=== PATIENT | female | born 1970 | race Caucasian/White ===

== ENCOUNTER 2017-11-19 09:18 | Emergency (ER) | payer OTHER ==
[~2017-11-19] VITALS: Ht 172.7 cm; Wt 77.1 kg
[~2017-11-19 09:18] MED LIST: Birth Control; CLARITIN10 MG; MECLIZINE HCL12.5 MG; NEURONTIN 300300 M1; ULTRAM 50MG TAB50 MG PO
[2017-11-19] MEDS ORDERED: LIORESAL 10 MG10 MG PO (09:21)
[2017-11-19] MEDS ORDERED: CLARITIN10 MG PO (09:22)
[2017-11-19] MEDS ORDERED: UNICOMPLEX M TA1 TA1 PO (09:22)
[2017-11-19 10:02] LABS: ABSOLUTE BASOPHILS 0.1 thou/uL (0.0-0.2); ABSOLUTE LYMPHOCYTES 1.7 thou/uL (0.8-5.3); ABSOLUTE MONOCYTES 0.3 thou/uL (0.0-1.2); ABSOLUTE NEUTROPHILS 4.8 thou/uL (1.6-8.1); BASOPHILS 0.9 %; EOSINOPHILS 0.3 %; HEMATOCRIT 37.1 % (37.0-47.0); HEMOGLOBIN 12.5 gm/dL (12.0-15.0); MCH 28.4 pg (26.0-34.0); MCHC 33.7 g/dL (28.0-37.0); MCV 84.4 fL (80.0-100.0); MPV 6.8 fl. (7.2-11.1); NUCLEATED RBCS 0 /100WBC; PLATELET COUNT* 410 thou/uL (150-400); POLYS 69.8 %; RDW-CV 13.5 % (10.5-14.5); WBC 6.9 thou/uL (4.0-11.0)
[2017-11-19 10:10] LABS: ANION GAP 8 mmol/L (7-16); BUN 10 mg/dL (7-18); CALCIUM 8.9 mg/dL (8.5-10.1); CHLORIDE 105 mmol/L (98-107); CO2 28 mmol/L (21-32); CREATININE 0.6 mg/dL (0.6-1.3); GLUCOSE 95 mg/dL (70-99); POTASSIUM 3.9 mmol/L (3.5-5.1); SODIUM 141 mmol/L (136-145)
[2017-11-19 10:21] LABS: ALBUMIN 3.6 g/dL (3.4-5.0); ALKALINE PHOSPHATASE 136 U/L (46-116); LIPASE 81 U/L (73-393); NT-PRO BRAIN NAT PEPTIDE 33 pg/mL (<300); SGOT 13 U/L (15-37); SGPT 13 U/L (30-65); TOTAL BILIRUBIN 0.2 mg/dL (<0.1-1.0); TOTAL PROTEIN 7.3 g/dL (6.4-8.2); TROPONIN-I LEVEL <0.06 ng/mL (<0.06)
[2017-11-19 10:23] LABS: PROTIME 10.2 Seconds (9.20-11.50)
[2017-11-19] MEDS ORDERED: ADULT LOW DOSE81 MG PO (13:03)
[2017-11-19 13:41] VITALS: BP 111/79
--- NOTE | 2017-11-20 11:40 | EKG ---
[place] [address] ELECTROCARDIOGRAM REPORT Name: HILTON COCHRANTHIAll Dacosta [facility] [id number] Admission: 11/19/17 Attend Phys: Discharge: 11/19/17 Date of : 70 Report #: [id number] THIS REPORT FOR: //name// [facility] ED Test Date: 2017-11-19 Test Time: 09:23:36 Pat Name: FRED COCHRAN Department: Room: Gender: F Personal Banking Representative: : 1970 Requested By: Rob Aden Order Number: [id number] MD: Reza Dee Measurements Intervals [place] Rate: 85 P: 69 [place]: 164 QRS: 22 QRSD: 88 T: 54 QT: 355 QTc: 422 Interpretive Statements Sinus rhythm Baseline wander in lead(s) II,III,aVR,aVL,aVF No previous ECG available for comparison Electronically Signed On 11-20-2017 11:39:52 [employer]ER [employer]UCATION TEACHER by Reza Dee [email or web address] <ELECTRONICALLY SIGNED> By: Reza Dee MD, [facility] 11/20/17 1139 D: [id number] 2 Reza Dee MD, FACC /EPI
== END 2017-11-19 13:41 | disposition home or self-care (01) ==
LOC: M.ERS 09:18
PROVIDERS: Emergency Medicine
DX: R07.89 Other chest pain (principal)